=== PATIENT | male | born 1985 | race African-American/Black ===

== ENCOUNTER 2024-03-10 11:23 | Emergency (ER) | payer OTHER ==
[~2024-03-10] VITALS: Ht 188 cm; Wt 81.6 kg
[2024-03-10 11:37] VITALS: O2SAT 99
[2024-03-10] MEDS: IBUPROFEN 600MG TABLET PO ONE (12:31)
[2024-03-10 13:18] VITALS: BP 127/76; PULSE 64; RESP 16; TEMP 36.94740; O2SAT 99
== END 2024-03-10 13:19 | disposition home or self-care (01) ==
LOC: ER 11:23
DX: M25.531 Pain in right wrist (principal)
CPT/HCPCS: 73110; 99283